=== PATIENT | male | born 1980 | race American Indian/Alaskan Native ===

== ENCOUNTER 2021-12-20 22:38 | Emergency (ER) | payer SELFPAY ==
[2021-12-20 23:32] VITALS: BP 122/78
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
== END 2021-12-21 03:30 ==
LOC: ED 22:38
DX: Z02.89 Encounter for other administrative examinations (principal); S80.811A Abrasion, right lower leg, initial encounter; F17.200 Nicotine dependence, unspecified, uncomplicated; X58.XXXA Exposure to other specified factors, initial encounter; Y93.89 Activity, other specified; Y92.89 Other specified places as the place of occurrence of the external cause; Y99.8 Other external cause status
CPT/HCPCS: 99283